=== PATIENT | female | born 1975 | race Caucasian/White ===

== ENCOUNTER 2017-07-20 11:11 | Emergency (ER) | payer OTHER ==
[~2017-07-20] VITALS: Ht 149.9 cm; Wt 51.2 kg
--- NOTE | ~2017-07-20 | EKG ---
PATIENT: GREGG PEARCE UNIT #: [id number] Ventricular Rate: 67 BPM Atrial Rate: 67 BPM P-R Interval: 142 ms QRS Duration: 70 ms Q-T Interval: 374 ms QTC Calculation(Bezet): 395 ms P [place]: 55 degrees Calculated R [place]: 56 degrees Calculated T [place]: 60 degrees Diagnosis Line: Sinus rhythm with marked sinus arrhythmia with Diagnosis Line: occasional Premature ventricular complexes Diagnosis Line: Otherwise normal ECG Diagnosis Line: When compared with ECG of 12-NOV-2015 10:09, Diagnosis Line: Premature ventricular complexes are now Present Diagnosis Line: Criteria for Septal infarct are no longer Present Diagnosis Line: QT has shortened Diagnosis Line: Confirmed by DARA ELLIOTT MD ([id number]) on Diagnosis Line: 07/22/2017 10:49:47 AM INTERPRETING MD: EARL DORADO
--- NOTE | ~2017-07-20 | CR72 ---
[facility] A Service of [facility] & [facility] RADIOLOGY TEXT RESULTS PATIENT: GREGG PEARCE LOCATION: [facility] : 79 UNIT #: [id number] AGE: [address]: Aurora Coto MD SEX: F ORDER DR: [id number] [facility] [address] [place], [place] [address] [id number] E MR#: [id number] Acc #: [id number] NAME: GREGG PEARCE : 1975 SEX: F STUDY DATE/TIME: 07/20/2017 12:33 UNIT: [facility] ROOM: STUDY DESCRIPTION: CR Chest Single View Portable Attending Physician: Aurora Coto M.D. Ordering Physician: Aurora Coto M.D. Primary Care Physician: George Moseley M.D. MEDICAL IMAGING REPORT This report is preliminary unless electronic signature is present EXAM Portable chest, 07/20/2017 INDICATIONS Chest pain and nausea for 3 days. COMPARISON 11/12/2015 FINDINGS A single AP portable view of the chest shows both lungs to be clear. The heart is normal in size. The mediastinal contour is normal. No significant bone abnormalities are seen. IMPRESSION Normal portable chest. Dictated by... Phi Johnson Jr., M.D. THIS IS AN ELECTRONICALLY VERIFIED REPORT Phi Johnson Jr., M.D. at 07/21/2017 8:29 AM SMITHA/gabriel TD: 07/20/2017 21:57 JOB #: [id number] MEDICAL IMAGING REPORT Page 1 of 1 COPY
[~2017-07-20 11:11] MED LIST: ACETAMINOPHEN PO; ALEVE220 M1 PO; BACTRIM DS TABL1 TAB PO; BENADRYL PO; DARVOCET-N 1001 TAB PO; FLEXERIL10 MG PO; KEFLEX PO; LORTAB 7.5-5001 TAB PO; NAPROXEN PO; NO MEDICATIONS; NORFLEX100 M1 PO; ULTRAM PO; VOLTAREN75 MG PO
[2017-07-20 12:53] LABS: URINE SOURCE CLEAN CATCH
[2017-07-20 13:02] LABS: URINE APPEARANCE CLEAR; URINE BILIRUBIN NEG (NEG); URINE BLOOD NEG (NEG); URINE COLOR YELLOW; URINE GLUCOSE NEG (NEG); URINE KETONE NEG (NEG); URINE LEUKOCYTE ESTERASE 1+ (NEG); URINE NITRATE NEG (NEG); URINE PROTEIN NEG (NEG); URINE SPECIFIC GRAVITY 1.011 (1.003-1.035)
[2017-07-20 13:05] LABS: CULTURE INDICATED? YES; URBCS1 AUWI 0-2 /[HPF] (0-2); URINE BACTERIA AUWI 1+ (NEGATIVE); URINE SQUAMOUS EPITHELIAL CELL MOD /[HPF]
[2017-07-20 13:06] LABS: BASOPHIL# 0.1 X10e3 (0-0.3); BASOPHIL% 0.9 % (0-2.5); EOSINOPHIL# 0.2 X10e3 (0-0.7); EOSINOPHIL% 1.7 % (0.0-7.0); HEMOGLOBIN 13.5 gm/dL (12.0-16.0); LYMPHOCYTE# 3.5 X10e3 (1.0-3.5); LYMPHOCYTE% 28.9 % (17.0-45.0); MEAN CELL VOLUME 97.5 FL (83-96); MEAN CORPUSCULAR HGB CONC 33.9 g/dL (30-36); MEAN PLATELET VOLUME 10.2 FL (6.5-11.5); MONOCYTE# 0.8 X10e3 (0-1.0); MONOCYTE% 6.8 % (3.0-12.0); NEUTROPHIL# 7.4 X10e3 (1.5-7.1); NEUTROPHIL% 61.7 % (40-75); RED CELL DISTRIBUTION WIDTH 13.6 % (11.0-15.5); WHITE BLOOD COUNT 11.9 X10e3 (4.0-10.5)
[2017-07-20 13:10] LABS: POC - CKMB 1.3 ng/mL (0.0-7.9); POC - TROPONIN <0.05 ng/mL (<=0.05)
[2017-07-20 13:13] LABS: INR 0.9; PARTIAL THROMBOPLASTIN TIME 27.9 SECONDS (23.5-31.3); PROTHROMBIN TIME (PATIENT) 10.2 SECONDS (10.0-11.7)
[2017-07-20 13:28] LABS: BILIRUBIN, DIRECT 0.1 mg/dL (0.0-0.2); BILIRUBIN,INDIRECT 0.2 mg/dL (0.0-0.9); BILIRUBIN,TOTAL 0.3 mg/dL (0.2-2.0); CALCIUM SERUM 9.7 mg/dL (8.4-10.2); CREATININE SERUM 0.8 mg/dL (0.6-1.4); DIFF IND NO; GLOM FILT RATE Estimated 92.3 mL/min (>60); PLATELET COUNT 211 X10e3 (140-420); POTASSIUM 3.8 mmol/L (3.5-5.1); PROTEIN TOTAL SERUM 8.1 g/dL (6.0-8.3)
[2017-07-20 14:38] LABS: POC - CKMB <1.0 ng/mL (0.0-7.9); POC - TROPONIN <0.05 ng/mL (<=0.05)
[2017-07-20 15:10] LABS: AMPHETAMINE NEG (NEG); BARBITURATES NEG (NEG); BENZODIAZEPINES NEG (NEG); COCAINE NEG (NEG); MARIJUANA POS (NEG); OPIATES NEG (NEG); TRICYCLIC ANTIDEPRESSANTS NEG (NEG); U METHADONE NEG (NEG)
== END 2017-07-20 17:15 | disposition home or self-care (01) ==
LOC: CED 11:11
PROVIDERS: Emergency Medicine
DX: R07.89 Other chest pain (principal); I10 Essential (primary) hypertension; E78.00 Pure hypercholesterolemia, unspecified
CPT/HCPCS: 36415; 71010; 80048; 80076; 80307; 81003; 82553; 83690; 83880; 84443; 84484; 84703; 85025; 85379; 85610; 85730; 87086; 93005; 99285; J1885; J2360